=== PATIENT | female | born 1990 | race Caucasian/White ===

== ENCOUNTER → 2016-12-13 | Outpatient (CLI) | payer OTHER ==
[~2016-12-13] MED LIST: BCPILLS PO; [UNRECOGNIZED DRUG - CODE] PO
--- NOTE | 2016-12-13 15:15 | DIAGNOSTIC IMAGING REPORT ---
THYROID ULTRASOUND CLINICAL HISTORY: Thyroid nodule. COMPARISON STUDY: Thyroid ultrasound June 22, 2015 and November 24, 2015. TECHNIQUE: Sonography of the thyroid gland was performed. FINDINGS: The right thyroid lobe measures 6.4 x 1.7 x 1.9 cm and the left lobe measures 6.4 x 1.7 x 1.4 cm. A 0.6 x 0.6 x 0.4 cm hypoechoic nodule within the lower pole of the right thyroid lobe is unchanged since initial ultrasound of June 22, 2015. No additional nodules are identified. IMPRESSION: No change in the 6 mm right lobe thyroid nodule since exam of June 22, 2015. Electronically signed by: Lex Martins M.D. 12/13/2016 3:14 PM Dictated Date/Time: 12/13/2016 3:12 PM
== END | disposition home or self-care (01) ==
LOC: C.ULTRBC 14:18
PROVIDERS: ATTEND Family Medicine
DX: E04.1 Nontoxic single thyroid nodule (principal)